=== PATIENT | male | born 1945 | race Caucasian/White ===

== ENCOUNTER 2018-07-17 13:59 | Emergency (ER) | payer OTHER ==
[2018-07-17] MEDS: MECLIZINE 12.5 MG TAB PO (15:06)
== END 2018-07-17 15:15 | disposition home or self-care (01) ==
LOC: E/R 15:15
DX: R42 Dizziness and giddiness (principal); I10 Essential (primary) hypertension; E11.9 Type 2 diabetes mellitus without complications; H61.23 Impacted cerumen, bilateral; Z79.84 Long term (current) use of oral hypoglycemic drugs
CPT/HCPCS: 99282; Z7610